=== PATIENT | female | born 1965 | race Caucasian/White ===

== ENCOUNTER 2017-08-09 11:59 | Emergency (ER) | payer MEDICAID, OTHER ==
[~2017-08-09] VITALS: Ht 170.2 cm; Wt 79.1 kg
[~2017-08-09 11:59] MED LIST: DIAZ2TAB PO; HYDR-565 PO; HYDR-569 PO
[2017-08-09 12:02] VITALS: BP 110/80
[2017-08-09] MEDS ORDERED: ketorolac trometh inj. 60 MG/2 ML VIAL IM ONE (12:15)
[2017-08-09] MEDS ORDERED: DICL75TA5 PO (12:16)
== END 2017-08-09 12:37 | disposition home or self-care (01) ==
LOC: ER 12:00
DX: B07.9 Viral wart, unspecified (principal); G89.29 Other chronic pain; M19.90 Unspecified osteoarthritis, unspecified site; Z79.899 Other long term (current) drug therapy
CPT/HCPCS: 96372; 99283; J1885

== ENCOUNTER 2018-03-30 09:06 | Emergency (ER) | payer OTHER ==
[~2018-03-30] VITALS: Ht 170.2 cm; Wt 80.0 kg
[~2018-03-30 09:06] MED LIST changes: +DICL75TA5 PO
[2018-03-30 09:24] VITALS: BP 126/91
== END 2018-03-30 10:13 | disposition home or self-care (01) ==
LOC: ER 09:07
DX: B07.0 Plantar wart (principal); M79.671 Pain in right foot; M79.672 Pain in left foot; G89.29 Other chronic pain
CPT/HCPCS: 99281

== ENCOUNTER 2019-07-28 22:18 | Emergency (ER) | payer MEDICAID ==
[~2019-07-28] VITALS: Ht 170.2 cm; Wt 77.3 kg
[~2019-07-28 22:18] MED LIST changes: +HYDR-4353 PO; +HYDR-4383 PO; -HYDR-565 PO; -HYDR-569 PO
[2019-07-28] MEDS ORDERED: orphenadrine citrate 60mg/2ml inj. IM ONE (23:20)
[2019-07-28] MEDS ORDERED: CYCL-1 PO (23:34)
[2019-07-29 00:01] VITALS: BP 138/72
== END 2019-07-29 00:03 | disposition home or self-care (01) ==
LOC: ER 22:19
DX: S39.012A Strain of muscle, fascia and tendon of lower back, initial encounter (principal); G89.29 Other chronic pain; W00.0XXA Fall on same level due to ice and snow, initial encounter; Y93.01 Activity, walking, marching and hiking; Y92.89 Other specified places as the place of occurrence of the external cause; Y99.9 Unspecified external cause status
CPT/HCPCS: 96372; 99284; J2360

== ENCOUNTER 2019-08-01 09:23 | Emergency (ER) | payer MEDICAID ==
[~2019-08-01] VITALS: Ht 170.2 cm; Wt 79.8 kg
[~2019-08-01 09:23] MED LIST changes: +CYCL-1 PO
[2019-08-01 11:12] LABS: CLARITY,URINE CLOUDY (Clear); COLOR,URINE YELLOW (Yellow); GLUCOSE, URINE NEGATIVE (Neg); KETONES,URINE 15 mg/dl (Neg); LEUKOCYTE ESTERASE ,URINE MODERATE (Neg); NITRITES, URINE POSITIVE (Neg); OCCULT BLOOD,URINE NEGATIVE (Neg); PROTEIN,URINE NEGATIVE (Neg)
[2019-08-01 11:14] VITALS: BP 139/92
[2019-08-01] MEDS ORDERED: orphenadrine citrate 60mg/2ml inj. IM ONE (11:15)
[2019-08-01] MEDS ORDERED: ketorolac tromethamine 15mg/ml inj. IM ONE (11:15)
[2019-08-01 11:17] LABS: UA COLLECTION TYPE CLN CATCH MIDSTREAM
[2019-08-01] MEDS ORDERED: NAPR-56 PO (11:17)
[2019-08-01 11:19] LABS: BACTERIA,URINE 4+ /HPF (Neg); RBC,URINE NONE SEEN /HPF (0-2); SQUAMOUS EPITHELIAL CELL,UR MODERATE /LPF (FEW); WBC,URINE 30-50 /HPF (0-4)
--- NOTE | 2019-08-04 09:50 | NUR ---
called [place] [facility] for cipro 500mg bid x 7 days #14. no refills
== END 2019-08-01 11:31 | disposition home or self-care (01) ==
LOC: ER 09:23
DX: M54.5 Low back pain (principal); M25.552 Pain in left hip; G89.29 Other chronic pain; W00.2XXA Other fall from one level to another due to ice and snow, initial encounter; Y93.89 Activity, other specified; Y92.89 Other specified places as the place of occurrence of the external cause; Y99.9 Unspecified external cause status
CPT/HCPCS: 73503; 81001; 87077; 87088; 87186; 96372; 99284; J1885; J2360

== ENCOUNTER 2024-05-21 19:23 | Inpatient (IN) | payer MEDICAID ==
[~2024-05-21] VITALS: Ht 172.7 cm; Wt 70.2 kg
[2024-05-21 20:22] LABS: BASOPHILS # (AUTO) 0.1 X10'3 (0-0.2); BASOPHILS % (AUTO) 1.8 % (0-1); EOSINOPHILS % (AUTO) 0.9 % (0-6); HEMATOCRIT 41.9 % (35.0-45.0); HEMOGLOBIN 13.8 g/dl (12.0-16.0); LYMPHOCYTES # (AUTO) 2.7 X10'3 (1.1-4.8); LYMPHOCYTES % (AUTO) 55.7 % (21-51); MEAN CORPUSCULAR HEMOGLOBIN 31.6 PG (27.0-31.0); MEAN CORPUSCULAR HGB CONC 32.9 g/dL (33.0-36.5); MEAN PLATELET VOLUME 10.1 FL (7.4-10.4); MONOCYTES # (AUTO) 0.3 X10'3 (0-0.9); MONOCYTES % (AUTO) 5.6 % (2-12); NEUTROPHILS # (AUTO) 1.7 X10'3 (1.8-7.7); PLATELET COUNT 201 X10'3 (140-440); RED BLOOD COUNT 4.36 X10'6 (4.20-5.60); RED CELL DISTRIBUTION WIDTH 14.7 % (11.5-14.5); WHITE BLOOD COUNT 4.8 X10'3 (4.5-11.0)
[2024-05-21 20:34] LABS: ALANINE AMINOTRANSFERASE 31 U/L (12-78); ALBUMIN 3.8 G/DL (3.4-5.0); ALBUMIN/GLOBULIN RATIO 1.1 (1.1-1.5); ALKALINE PHOSPHATASE 76 IU/L (46-116); ANION GAP 5 (8-16); ASPARTATE AMINO TRANSFERASE 33 U/L (10-37); BILIRUBIN,TOTAL 0.3 MG/DL (0.1-1.0); BLOOD UREA NITROGEN 8 MG/DL (7-18); BUN/CREATININE RATIO 8.8 (10.0-20.0); CALCIUM 9.7 MG/DL (8.5-10.1); CHLORIDE 108 MMOL/L (99-107); CREATININE 0.91 MG/DL (0.40-0.90); GLUCOSE 107 MG/DL (70-104); POTASSIUM 3.9 MMOL/L (3.5-5.1); SODIUM 144 MMOL/L (135-145); TOTAL CARBON DIOXIDE 31.2 MMOL/L (24-32); TOTAL PROTEIN 7.3 G/DL (6.4-8.2); eCRCL 66 ML/MIN; eGFR 63 ML/MIN
[2024-05-21 20:43] LABS: PRO BRAIN NATRIURETIC PEPTIDE 311 PG/ML (0-125)
[2024-05-21 21:00] LABS: TOTAL CELLS COUNTED 100
[2024-05-21 21:05] LABS: EOSINOPHILS % (MANUAL) 1 % (0-6); MONOCYTES % (MANUAL) 4 % (2-12); PLATELET ESTIMATE NORMAL; REACTIVE LYMPHOCYTES % 3 % (0-0)
[2024-05-21 21:06] LABS: LYMPHOCYTES % (MANUAL) 47 % (21-51); NEUTROPHILS % (MANUAL) 45 % (42-75)
[2024-05-21] MEDS ORDERED: PERFLUTREN PROTEIN-A MICROSPHR (Optison) 0.22 MG/ML 3ML VIAL IV PRN (23:15)
[2024-05-21] MEDS ORDERED: magnesium sulf-water 4G/100mL 100 ML IV PRN (23:15)
[2024-05-21] MEDS ORDERED: magnesium sulf-water 2g/50mL 50 ML IV PRN (23:15)
[2024-05-21] MEDS ORDERED: potassium Cl 20 mEq SR tablet PO PRN (23:15)
[2024-05-21] MEDS ORDERED: potassium Cl 40MEQ/1/2NS 520ml 520 ML IV PRN (23:15)
[2024-05-21] MEDS ORDERED: magnesium Cl slow-release 64mg tablet PO PRN (23:15)
[2024-05-21 23:50] LABS: HEMOGLOBIN A1C 4.9 % (4.5-6.2)
[2024-05-22] MEDS: normal saline 1000ml 1,000 ML IV ONE (00:31)
[2024-05-22] MEDS: normal saline 1000ml 1,000 ML IV SCH ×2 (00:32→03:46)
[2024-05-22 01:02] LABS: FREE T4 (FREE THYROXINE) 0.66 NG/DL (0.73-1.40); THYROID STIMULATING HORMONE 49.93 ulU/ml (0.34-4.50)
[2024-05-22 03:34] LABS: BASOPHILS # (AUTO) 0.1 X10'3 (0-0.2); BASOPHILS % (AUTO) 1.6 % (0-1); EOSINOPHILS % (AUTO) 0.7 % (0-6); HEMATOCRIT 37.4 % (35.0-45.0); HEMOGLOBIN 12.3 g/dl (12.0-16.0); LYMPHOCYTES # (AUTO) 2.3 X10'3 (1.1-4.8); LYMPHOCYTES % (AUTO) 45.8 % (21-51); MEAN CORPUSCULAR HEMOGLOBIN 31.5 PG (27.0-31.0); MEAN CORPUSCULAR HGB CONC 32.9 g/dL (33.0-36.5); MEAN CORPUSCULAR VOLUME 95.7 FL (78-98); MONOCYTES # (AUTO) 0.3 X10'3 (0-0.9); MONOCYTES % (AUTO) 6.5 % (2-12); NEUTROPHILS # (AUTO) 2.3 X10'3 (1.8-7.7); NEUTROPHILS % (AUTO) 45.4 % (42-75); PLATELET COUNT 176 X10'3 (140-440); RED BLOOD COUNT 3.91 X10'6 (4.20-5.60); RED CELL DISTRIBUTION WIDTH 14.6 % (11.5-14.5)
[2024-05-22 03:41] LABS: ALANINE AMINOTRANSFERASE 24 U/L (12-78); ALBUMIN 3.1 G/DL (3.4-5.0); ALKALINE PHOSPHATASE 57 IU/L (46-116); ANION GAP 8 (8-16); ASPARTATE AMINO TRANSFERASE 26 U/L (10-37); BILIRUBIN,TOTAL 0.4 MG/DL (0.1-1.0); BLOOD UREA NITROGEN 7 MG/DL (7-18); BUN/CREATININE RATIO 9.7 (10.0-20.0); CHLORIDE 108 MMOL/L (99-107); CHOL/HDL RATIO 1.9 (0.00-4.99); CHOLESTEROL 152 MG/DL (0-200); CREATININE 0.72 MG/DL (0.40-0.90); GLUCOSE 78 MG/DL (70-104); HDL CHOLESTEROL 78 MG/DL (35-60); LDL CHOLESTEROL 62 MG/DL (50-100); POTASSIUM 3.8 MMOL/L (3.5-5.1); SODIUM 140 MMOL/L (135-145); TOTAL CARBON DIOXIDE 24.4 MMOL/L (24-32); TOTAL PROTEIN 6.2 G/DL (6.4-8.2); TRIGLYCERIDES 94 MG/DL (20-135); eCRCL 83 ML/MIN; eGFR 83 ML/MIN
[2024-05-22] MEDS ORDERED: LISI5TAB22 PO (04:21)
[2024-05-22] MEDS ORDERED: LEVO137T2 PO (04:21)
[2024-05-22] MEDS ORDERED: levoTHYROXINE 25mcg tablet PO SCH (07:00)
[2024-05-22] MEDS ORDERED: levoTHYROXINE 112mcg tablet PO SCH (07:00)
[2024-05-22] MEDS: K and/or MAG REPLACEMENT MC SCH (08:00)
[2024-05-22] MEDS: enoxaparin 40mg/0.4ml syringe SUBCUT SCH (09:32)
[2024-05-22] MEDS: PERFLUTREN PROTEIN-A MICROSPHR (Optison) 0.22 MG/ML 3ML VIAL IV ONE (09:49)
[2024-05-22] MEDS ORDERED: OXYB5TAB21 PO (09:58)
[2024-05-22] MEDS: levoTHYROXINE 75mcg tablet PO ONE (10:19)
[2024-05-22] MEDS: fludrocortisone acetate 0.1mg tablet PO ONE (14:04)
[2024-05-22] MEDS ORDERED: carVEDilol 3.125mg tablet PO SCH (20:00)
[2024-05-23 03:37] LABS: BASOPHILS % (AUTO) 1.2 % (0-1); EOSINOPHILS % (AUTO) 0.9 % (0-6); HEMATOCRIT 39.5 % (35.0-45.0); HEMOGLOBIN 13.1 g/dl (12.0-16.0); LYMPHOCYTES # (AUTO) 1.9 X10'3 (1.1-4.8); LYMPHOCYTES % (AUTO) 46.5 % (21-51); MEAN CORPUSCULAR HEMOGLOBIN 31.8 PG (27.0-31.0); MEAN CORPUSCULAR HGB CONC 33.2 g/dL (33.0-36.5); MEAN CORPUSCULAR VOLUME 95.8 FL (78-98); MEAN PLATELET VOLUME 10.6 FL (7.4-10.4); MONOCYTES # (AUTO) 0.3 X10'3 (0-0.9); NEUTROPHILS # (AUTO) 1.8 X10'3 (1.8-7.7); NEUTROPHILS % (AUTO) 43.4 % (42-75); PLATELET COUNT 170 X10'3 (140-440); RED BLOOD COUNT 4.12 X10'6 (4.20-5.60); RED CELL DISTRIBUTION WIDTH 14.4 % (11.5-14.5); WHITE BLOOD COUNT 4.1 X10'3 (4.5-11.0)
[2024-05-23 03:50] LABS: ALANINE AMINOTRANSFERASE 23 U/L (12-78); ALBUMIN 3.1 G/DL (3.4-5.0); ALKALINE PHOSPHATASE 60 IU/L (46-116); ANION GAP 5 (8-16); ASPARTATE AMINO TRANSFERASE 27 U/L (10-37); BILIRUBIN,TOTAL 0.9 MG/DL (0.1-1.0); BLOOD UREA NITROGEN 7 MG/DL (7-18); BUN/CREATININE RATIO 9.2 (10.0-20.0); CALCIUM 9.4 MG/DL (8.5-10.1); CHLORIDE 106 MMOL/L (99-107); CREATININE 0.76 MG/DL (0.40-0.90); GLUCOSE 96 MG/DL (70-104); POTASSIUM 3.4 MMOL/L (3.5-5.1); SODIUM 139 MMOL/L (135-145); TOTAL CARBON DIOXIDE 27.6 MMOL/L (24-32); TOTAL PROTEIN 6.1 G/DL (6.4-8.2); eCRCL 81 ML/MIN; eGFR 78 ML/MIN
[2024-05-23 04:29] LABS: PLATELET ESTIMATE NORMAL
[2024-05-23 04:30] LABS: LARGE PLATELETS FEW
[2024-05-23 07:17] VITALS: BP 147/80; PULSE 52; RESP 16; TEMP 97.8; O2SAT 16
[2024-05-23] MEDS: EMPAGLIFLOZIN 10 MG TABLET PO SCH (07:48)
[2024-05-23] MEDS: losartan 50mg tablet PO SCH (07:50)
[2024-05-23] MEDS: levoTHYROXINE 175mcg tablet PO SCH (07:50)
[2024-05-23] MEDS: fludrocortisone acetate 0.1mg tablet PO SCH (07:51)
[2024-05-23] MEDS: potassium Cl 20 mEq SR tablet PO PRN (07:57)
[2024-05-23 08:00] VITALS: RESP 16; O2SAT 96
[2024-05-23] MEDS ORDERED: fludrocortisone acetate 0.1mg tablet PO SCH (08:30)
[2024-05-23] MEDS ORDERED: LEVO175T2 PO (09:53)
[2024-05-23] MEDS ORDERED: LOSA50TA64 PO (09:53)
[2024-05-23] MEDS ORDERED: EMPA10TA PO (09:53)
[2024-05-23] MEDS ORDERED: POTA-207 PO (09:54)
[2024-05-23 10:06] VITALS: BP_SYST 128; BP_SYST 147; BP_SYST 148; BP_DIAS 70; BP_DIAS 79; BP_DIAS 90; PULSE 51; PULSE 55; PULSE 67
== END 2024-05-23 11:45 | disposition home or self-care (01) | DRG 204 ==
LOC: ER 19:24 → ED HOLD 23:22 → EDBEDREQ 05-23 05:44 → ORTHO 4S 05-23 07:12
PROVIDERS: ADMIT Internal Medicine Critical Care Medicine; ATTEND Family Medicine
DX: I95.1 Orthostatic hypotension (principal); I50.23 Acute on chronic systolic (congestive) heart failure; E87.6 Hypokalemia; E03.9 Hypothyroidism, unspecified; G89.29 Other chronic pain; R00.1 Bradycardia, unspecified; I71.9 Aortic aneurysm of unspecified site, without rupture; Z79.84 Long term (current) use of oral hypoglycemic drugs
CPT/HCPCS: 36415; 70450; 71045; 80053; 80061; 83036; 83880; 84439; 84443; 84484; 85007; 85008; 85025; 87081; 93005; 93306; 97116; 97161; 99285; G0378; J1650; J7030